=== PATIENT | male | born 1950 | race Caucasian/White ===

== ENCOUNTER 2020-12-17 16:07 | Outpatient (CLI) | payer MEDICARE, SELFPAY ==
[2020-12-17 16:36] LABS: Hematocrit 40.7 % (37.0-46.0); Hemoglobin 14.1 g/dL (12.4-15.3); Mean Corpuscular HGB Conc 34.6 g/dL (32.0-36.0); Mean Corpuscular Volume 103.8 fL (78.0-102.0); Mean Platelet Volume 9.7 fl (8.7-11.0); Platelet Count Result 258 K/mm3 (150-420); Red Blood Count 3.92 M/mm3 (4.70-6.10); Red Cell Distribution Width 11.9 % (11.6-14.4); White Blood Count 10.1 K/mm3 (4.8-10.8)
[2020-12-17 17:18] LABS: Alanine Aminotransferase 18 U/L (16-63); Albumin Level 3.8 g/dL (3.4-5.0); Alkaline Phosphatase 84 U/L (46-116); Anion Gap 12 mmol/L (8-16); Aspartate Amino Transferase 18 U/L (15-37); Bilirubin,Total 0.5 mg/dL (0.00-1.00); Blood Urea Nitrogen 17 mg/dL (7-18); Carbon Dioxide 25 mmol/L (21-32); Chloride 106 mmol/L (98-108); Cholesterol 143 mg/dL (0-200); Estimated Glomerular Filt Rate > 60; Glucose 90 mg/dL (70-99); HDL Direct 51 mg/dL (40-60); LDL Cholesterol Calculated 74 mg/dL (<130); Osmolality Calculated 297 mOsm/kg (285-295); Potassium 4.3 mmol/L (3.5-5.1); Prostate Specific Antigen 1.3 ng/mL (< OR = 4.0); Sodium 143 mmol/L (136-145); Total Protein 7.1 g/dL (6.4-8.2); Triglycerides 92 mg/dL (0-150)
== END 2020-12-17 16:08 | disposition home or self-care (01) ==
LOC: CHSLAB 16:16
PROVIDERS: PCP Physician Assistant; Visit Provider Physician Assistant
DX: Z12.5 Encounter for screening for malignant neoplasm of prostate (principal); Z00.00 Encounter for general adult medical examination without abnormal findings; G25.81 Restless legs syndrome; Z13.6 Encounter for screening for cardiovascular disorders
CPT/HCPCS: 36415; 80053; 80061; 84153; 85027; G0103

== ENCOUNTER 2023-11-20 15:18 | Outpatient (CLI) | payer MEDICARE, SELFPAY ==
--- NOTE | ~2023-11-20 | XR_ITS ---
XR shoulder RT min 2V Ordering provider: Tony Carballo, DAMEON History: . Rt shoulder pain after fall 2 months ago . Comparison: None. FINDINGS: BONES: No acute fracture or dislocation. JOINT SPACES: The acromioclavicular joint is normal. The glenohumeral joint is normal. SOFT TISSUES: Normal. Calcified hilar lymph nodes. IMPRESSION: No acute osseous abnormality right shoulder. Reviewed, dictated and finalized at location A.
== END 2023-11-20 15:19 | disposition home or self-care (01) ==
LOC: CHSIMG 15:23
PROVIDERS: PCP Physician Assistant; Visit Provider Physician Assistant
DX: M25.511 Pain in right shoulder (principal)
CPT/HCPCS: 73030

== ENCOUNTER 2023-11-20 15:44 | Outpatient (RCR) | payer MEDICARE, SELFPAY ==
--- NOTE | 2023-11-20 17:00 | OPREHPOC ---
Outpatient Therapy Plan of Care This is a Multidisciplinary Plan of Care that may contain components documented by all disciplines (PT, OT, and ST.) PT Problem 1 PT Problem #1 Knowledge Deficit PT Goal 1 Goal 1. independent and compliant with HEP Target Visit 3 PT Problem 2 PT Problem #2 Pain PT Goal 1 Goal 1. pain free movement and use of the R shoulder Target Visit 6 PT Problem 3 PT Problem #3 Impaired Range of Motion PT Goal 1 Goal 1. equal R and L shoulder active flexion, abduction, IR Target Visit 6 PT Problem 4 PT Problem #4 Impaired Strength PT Goal 1 Goal 1. 5/5 R shoulder strength PT Problem 5 PT Problem #5 Impaired Functional Mobil PT Goal 1 Goal 1. quick dash to display less 10% or less functional deficits 2. 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
--- NOTE | 2023-11-20 17:00 | PTOPEVAL1 ---
Assessment and note entered by JT File, PT Evaluation Information Assessment Status Evaluation Diagnosis R shoulder pain Subjective Information patient reports he fell off a stage and fell on his R shoulder and head. he reports he had an xray of the R shoulder. 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 patient reports since the fall, he had difficulty with playing music. he reports the pain and symptoms come to the side of the shoulder about 15 minutes into playing. he reports it will then stiffen up. he reports it does not bother him during sleep, but reports waking up in the morning he may have increased pain from laying on his R side throughout the night. he reports no NTB in the R UE. he reports it feels like there is a hot endocrinology nurse the shoulder all the time. he reports the fall was about 1 month ago. he reports the shoulder has been about the same since the fall. he has treated with salonpas patches to the R shoulder. he reports he is able to raise the arm up over his head. Reported Pain Level Pain Score 2: Self Report Assessment PT Clinical Summary mr. corona is a 72 yo man who presents to skilled PT services for evaluation and treatment of R shoulder pain following a fall on the R shoulder. his rom is preserved, but patient has pain in the R shoulder with RTC/impingement special tests, and the shoulder is painful with repetitive lifting/use. he likely has a RTC tendonitis of the R shoulder. continued skilled PT is indicated to treat his objective/functional deficits and progress towards a return to his prior level functional activity performance/ quality of life. Plan of Care Interventions Electrical Stimulation,Hot Pack/Cold Pack,Manual Therapy,Neuro Re-education,Patient/Caregiver Educati,Therapeutic Activities,Therapeutic Exercise PT Services Indicated Yes Treatment Frequency and 2x weekly for 6 visits Duration These treatments will address the objective and functional deficits as defined above. The patient will be advanced safely and appropriately in order for the patient to progress towards his/her prior level of function. Additional exercises will be introduced and as well as a comprehensive home exercise program upon discharge, if needed, ?to ensure carryover of functional gains achieved in the clinic. This treatment plan has been reviewed and agreement upon by the patient.
== END 2023-12-05 16:09 | disposition home or self-care (01) ==
LOC: CHSPT 15:44
PROVIDERS: Visit Provider Physician Assistant
DX: M25.511 Pain in right shoulder (principal)
CPT/HCPCS: 97014; 97110; 97161; G0283